=== PATIENT | female | born 1975 | race Caucasian/White ===

== ENCOUNTER 2017-12-09 11:52 | Day surgery (SDC) | payer OTHER ==
[2017-12-09] MEDS ORDERED: Sodium Chloride 0.9% 10 ML Syringe FLUSH PRN (12:00)
[2017-12-09] MEDS ORDERED: Lactated Ringers 1,000 ML IV SCH (12:00)
[2017-12-09] MEDS ORDERED: fentaNYL 100 MCG/2 ML SDV ONE ×2 (13:29→14:20)
[2017-12-09] MEDS ORDERED: Midazolam 1 MG/ML 2 ML SDV ONE ×2 (13:29→14:20)
[2017-12-09] MEDS ORDERED: Propofol 200 MG/20 ML SDV ONE ×2 (13:30→14:20)
[2017-12-09] MEDS ORDERED: Ketamine 500 mg/10 ML MDV ONE (13:30)
--- NOTE | 2017-12-09 13:30 | PCM.PN ---
- General Info Date of Service: 12/09/17 - Review of Systems Systems Review Comment:: 42-year-old female referred by Dot Dye for upper and lower endoscopy. This patient has been recently diagnosed with anemia. She denies any abdominal or epigastric pain. She states she has not seen any blood in her stools. This patient does have a known history of gastric bypass. She is medically stable to proceed today with no significant recent changes in her health status. Her history and physical is reviewed. I have discussed the proposed upper and lower endoscopy with the patient. Risks such as but not limited to bleeding and GI injury reviewed. She appears to understand and agrees to proceed. - Patient Data Vitals - Most Recent: Last Vital Signs Temp 98.1 F 12/09/17 12:30 Pulse 65 12/09/17 12:30 Resp 20 12/09/17 12:30 BP 111/56 L 12/09/17 12:30 Pulse Ox 100 12/09/17 12:30 Weight - Most Recent: 72.575 kg Med Orders - Current: Current Medications Lactated Ringer's (Ringers, Lactated) 1,000 mls @ 125 mls/hr IV ASDIRECTED BRADLY Sodium Chloride (Saline Flush) 10 ml FLUSH ASDIRECTED PRN PRN Reason: Keep Vein Open - Problem List Review Problem List Initiated/Reviewed/Updated: Yes - My Orders Last 24 Hours: My Active Orders 12/09/17 12:00 Patient Status [ADT] Routine Peripheral IV Care [RC] . DIRECTED Verify Patient Consent Obtain [RC] ASDIRECTED Lactated Ringers [Ringers, Lactated] 1,000 ml IV ASDIRECTED Sodium Chloride 0.9% [Saline Flush] 10 ml FLUSH ASDIRECTED PRN Peripheral IV Insertion Adult [OM.PC] Routine - Assessment Assessment:: Anemia - Plan Plan:: EGD and colonoscopy
[2017-12-09] MEDS ORDERED: Lidocaine 2% 5 ML SDV ONE (14:20)
--- NOTE | 2017-12-09 14:44 | PCM.OPNOTE ---
- General Post-Op/Procedure Note Date of Surgery/Procedure: 12/09/17 Operative Procedure(s): EGD and Colonoscopy Findings: Small vocal cord polyp Normal post op EGD Normal Colonoscopy Pre Op Diagnosis: Anemia Post-Op Diagnosis: Vocal cord Polyp. Normal post gastric bypass EGD. Normal Colon Anesthesia Technique: MAC Primary Surgeon: Kehinde Roberts Pathology: none Output, Urine Amount: 0 EBL in mLs: 0 Complications: None Condition: Good Free Text/Narrative:: Intake & Output 12/08/17 12/09/17 12/09/17 22:59 06:59 14:59 Intake Total 950 Balance 950
--- NOTE | 2017-12-23 16:06 | OR ---
Date of Procedure: 12/09/2017 PREOPERATIVE DIAGNOSIS: Anemia. POSTOPERATIVE DIAGNOSIS: Normal post upper endoscopy and normal colon. OPERATION PERFORMED: Esophagogastroduodenoscopy and colonoscopy. INDICATIONS FOR SURGERY: This 42-year-old female, who is status post gastric bypass, has developed an unexplained anemia with a hemoglobin down to 7.5. She was referred for upper and lower endoscopy. FINDINGS: On upper endoscopy, the patient has had a previous gastric bypass. Her gastric pouch and anastomosis appeared normal as do the esophagus and the jejunum. Her colonoscopy was normal. A small polyp was noted on her vocal cord. DESCRIPTION OF PROCEDURE: The patient was taken to the operating room. She was given intravenous sedation, and her throat was topically anesthetized. With her in the left lateral decubitus position, the esophagus was intubated under direct visualization with the Olympus gastroscope. The scope was advanced through the esophagus, the gastric pouch, and down into the jejunal limb. Examination was carried out as far as the scope could be advanced in the jejunal limb and it appeared normal. The scope was slowly withdrawn and then examination of the anastomosis and gastric pouch carried out. The GE junction and esophagus re- examined as the scope was withdrawn. Attention was turned to colonoscopy. Digital rectal exam shows no rectal masses. The Olympus colonoscope was inserted into the rectum. Retroflexed examination of the rectal canal was performed. The scope was then carefully advanced through the colon until the cecum was reached. A normal cecal anatomy was identified, confirming acquisition of the cecum. After examining the cecum, the scope was slowly withdrawn sequentially re-examining the colonic segments until the entire colon and rectum had been fully examined. The scope was removed. The patient was taken from the operating room in satisfactory condition. ESTIMATED BLOOD LOSS: Zero. COMPLICATIONS: None. PROGNOSIS: Good. CHARISSA Roberts MD /[id number]
== END 2017-12-09 15:50 | disposition home or self-care (01) ==
LOC: LL.SDS 11:52
PROVIDERS: ATTEND Surgery
DX: D64.9 Anemia, unspecified (principal); J38.1 Polyp of vocal cord and larynx
CPT/HCPCS: 00813; J2250; J2704; J3010; J7120

== ENCOUNTER 2023-03-09 22:28 | Emergency (ER) | payer BC ==
[2023-03-09 23:09] LABS: BASOPHILS ABSOLUTE AUTO 0.07 K/uL (0.00-0.20); BASOPHILS PERCENT AUTO 0.8 % (0.0-2.0); EOSINOPHILS PERCENT AUTO 1.1 % (0.0-5.0); HEMATOCRIT 42.5 % (34.0-46.0); HEMOGLOBIN 13.8 g/dL (11.7-15.5); LYMPHOCYTES PERCENT AUTO 47.7 % (10.0-50.0); MEAN CORPUSCULAR HEMOGLOBIN 28.1 pg (28.2-33.3); MEAN CORPUSCULAR HGB CONC 32.5 g/dL (31.7-36.0); MEAN CORPUSCULAR VOLUME 86.6 fL (84.0-98.0); MONOCYTES ABSOLUTE AUTO 0.79 K/uL (0.00-1.00); NEUTROPHILS ABSOLUTE AUTO 3.65 K/uL (1.40-7.00); NEUTROPHILS PERCENT AUTO 41.4 % (45.0-80.0); PLATELET COUNT,PLT 276 K/uL (150-350); RED BLOOD CELL COUNT 4.91 M/uL (3.77-5.09); RED CELL DISTRIBUTION WIDTH 16.7 % (11.2-14.1); WHITE BLOOD CELL COUNT,WBC 8.8 K/uL (4.0-10.2)
[2023-03-09 23:13] LABS: APPEARANCE,URINE CLEAR; BILIRUBIN,URINE NEGATIVE (NEGATIVE); COLOR,URINE YELLOW; GLUCOSE,URINE NEGATIVE (NEGATIVE); KETONES,URINE NEGATIVE (NEGATIVE); NITRITE,URINE POSITIVE (NEGATIVE); PH,URINE 5.5 (5.0-9.0); PROTEIN,URINE NEGATIVE (NEGATIVE); UROBILINOGEN,URINE 0.2 E.U./dL (0.2-1.0)
[2023-03-09 23:24] LABS: LEUKOCYTE ESTERASE,URINE TRACE (NEGATIVE)
[2023-03-09 23:25] LABS: ALBUMIN 3.9 g/dL (3.4-5.0); ANION GAP 8.4 meq/L (7-15); BACTERIA,URINE MANY /HPF (NONE TO FEW); BILIRUBIN TOTAL 0.6 mg/dL (0.2-1.0); CALCIUM 8.9 mg/dL (8.5-10.1); CARBON DIOXIDE,CO2 26.6 mmol/L (21.0-32.0); CREATININE 1.02 mg/dL (0.51-1.17); EST CRCL DRUG DOSING (CG) 51.45 mL/min; OCCULT BLOOD,URINE NEGATIVE (NEGATIVE); POTASSIUM,K 3.6 mmol/L (3.5-5.1); PROTEIN TOTAL,TP 7.1 g/dL (6.4-8.2); RBC,URINE 0-5 /HPF
[2023-03-09 23:27] LABS: AMPHETAMINES SCREEN, URINE NEGATIVE (NEGATIVE); BARBITURATE SCREEN,URINE NEGATIVE (NEGATIVE); BENZODIAZEPINES SCREEN,URINE NEGATIVE (NEGATIVE); BUPRENORPHINE SCREEN,URINE NEGATIVE (NEGATIVE); COCAINE METABOLITES,URINE NEGATIVE (NEGATIVE); EDDP,URINE SCREEN NEGATIVE (NEGATIVE); METHAMPHETAMINES SCREEN, URINE NEGATIVE (NEGATIVE); TCA SCREEN,URINE NEGATIVE (NEGATIVE); THC SCREEN,URINE 50 NG/ML NEGATIVE (NEGATIVE)
[2023-03-09 23:28] LABS: OXYCODONE SCREEN,URINE POSITIVE (NEGATIVE)
== END 2023-03-10 00:10 | disposition home or self-care (01) ==
LOC: LL.ED 22:28
DX: T43.644A Poisoning by ecstasy, undetermined, initial encounter (principal); N30.00 Acute cystitis without hematuria
CPT/HCPCS: 36415; 80053; 80305-QW; 81001; 85025; 99284